=== PATIENT | female | born 1965 ===

== ENCOUNTER 2017-08-08 16:50 | Emergency (ER) | payer MEDICAID ==
[2017-08-08 16:56] VITALS: BP 130/85; PULSE 91; RESP 18; TEMP 97.4; O2SAT 100
--- NOTE | 2017-08-08 17:40 | ED PDOC ---
HPI: General Adult Time Seen by Provider: 08/08/17 17:02 Chief Complaint (Nursing): Back Pain History Per: Patient History/Exam Limitations: no limitations Onset/Duration Of Symptoms: Days (x 3 to 4) Current Symptoms Are (Timing): Still Present Additional Complaint(s): Myranda is a 52 year old female who presents to the emergency department with painful lump in right flank area. Patient states she noticed lump today. Patient reports pain is worse with movement. Denies trauma, hematuria, dysuria, incontinence, radiation of pain, discharge, fever, chest pain or shortness of breath. Patient states she has had 2 non-malignant cysts removed from her brain and breast. PMD: Bailee Dillon Past Medical History Reviewed: Historical Data, Nursing Documentation, Vital Signs Vital Signs: Last Vital Signs Temp 97.4 F L 08/08/17 16:51 Pulse 91 H 08/08/17 16:51 Resp 18 08/08/17 16:51 BP 130/85 08/08/17 16:51 Pulse Ox 100 08/08/17 17:56 - Medical History PMH: Diabetes, Gastritis, HTN, Hypercholesterolemia, Hypothyroidism, Malignancy (vaginal and uterine cancer) - Surgical History Other surgeries: Cyst removals - Family History Family History: States: Diabetes, Hypertension - Immunization History Hx Tetanus Toxoid Vaccination: No Hx Influenza Vaccination: No Hx Pneumococcal Vaccination: No - Home Medications Home Medications: Ambulatory Orders Medication Instructions Recorded Atenolol [Tenormin] 100 mg PO DAILY 02/08/15 Atorvastatin Calcium [Lipitor] 40 mg PO HS 02/08/15 amLODIPine [Norvasc] 5 mg PO DAILY 03/20/15 Acetaminophen [Tylenol Extra 1,000 mg PO Q6H PRN 07/09/16 Strength] Cephalexin [Keflex] 500 mg PO Q6 #40 capsule 07/09/16 Levothyroxine [Synthroid] 25 mcg PO DAILY 07/09/16 Lisinopril [Zestril] 40 mg PO DAILY 07/09/16 Mupirocin 2% Nasal [Bactroban 2% 1 applic ADRIAN BID #1 tub 07/09/16 Nasal] Naproxen [Naprosyn] 500 mg PO Q12 PRN #20 tablet 07/09/16 Sulfamethoxazole/Trimethoprim 1 tab PO BID 07/09/16 [Bactrim DS Tab] Cyclobenzaprine [Cyclobenzaprine 10 mg PO Q8 PRN #30 tab 08/08/17 HCl] Meloxicam [Mobic] 7.5 mg PO DAILY PRN #30 tab 08/08/17 - Allergies Allergies/Adverse Reactions: Allergies Allergy/AdvReac Type Severity Reaction Status Date / Time No Known Allergies Allergy Verified 07/09/16 17:13 Review of Systems ROS Statement: Except As Marked, All Systems Reviewed And Found Negative Constitutional: Negative for: Fever Cardiovascular: Negative for: Chest Pain Respiratory: Negative for: Shortness of Breath Genitourinary Female: Negative for: Dysuria, Incontinence, Hematuria, Vaginal Discharge Musculoskeletal: Negative for: Other (radiation of pain) Skin: Positive for: Other (painful lump in right flank area) Physical Exam - Reviewed Nursing Documentation Reviewed: Yes Vital Signs Reviewed: Yes - Physical Exam Respiratory: Positive for: Normal Breath Sounds (Lungs clear) Gastrointestinal/Abdominal: Positive for: Normal Exam, Soft. Negative for: Tenderness Back: Positive for: Other (approx baseball size non-flucantant non-tender mass noted to right flank area with defined borders with surrounding muscle spasm and mass is mobile, non-erythematous, no breaks in skin integrity). Negative for: L CVA Tenderness, R CVA Tenderness, Vertebral Tenderness - ECG O2 Sat by Pulse Oximetry: 100 (RA) Pulse Ox Interpretation: Normal Medical Decision Making Medical Decision Making: Time: 17:14 Plan: - Toradol 30 mg IM Patient is advised to follow up with general surgeon for possible excision/ biopsy of mass. Patient was informed most likely lipoma, but would need biopsy to determine definitively. Patient verbally understands importance of follow up. Upon provider evaluation patient is medically stable, and requires no further treatment in the ED at this time. Patient will be discharged with Rx for Cyclobenzaprine and Mobic. Counseling was provided and all questions were answered regarding diagnosis and need for follow up with general surgeon. There is agreement to discharge plan. Return if symptoms persist or worsen. Scribe Attestation: Documented by Scott Szymanski, acting as a scribe for OMAR Richardson Provider Scribe Attestation: All medical record entries made by the Scribe were at my direction and personally dictated by me. I have reviewed the chart and agree that the record accurately reflects my personal performance of the history, physical exam, medical decision making, and the department course for this patient. I have also personally directed, reviewed, and agree with the discharge instructions and disposition. Disposition - Clinical Impression Clinical Impression: Back pain, Mass on back - Patient ED Disposition Is Patient to be Admitted: No - Disposition Referrals: [facility] Taw[facility] Preciado [Outside] Jamarcus Conti MD [Staff Provider] - Disposition: Routine/Home Disposition Time: 17:55 Condition: STABLE Additional Instructions: Follow up with surgeon for possible excision/biopsy of mass. Prescriptions: Cyclobenzaprine [Cyclobenzaprine HCl] 10 mg PO Q8 PRN #30 tab PRN Reason: Muscle Spasm Meloxicam [Mobic] 7.5 mg PO DAILY PRN #30 tab PRN Reason: Pain, Mild (1-3) Instructions: Lipoma (ED), Back Pain (ED) Forms: [employer] (Kiswahili) Print Language: HEBREW
== END 2017-08-08 17:59 | disposition home or self-care (01) ==
LOC: H.ER 16:50
DX: M54.9 Dorsalgia, unspecified (principal); D17.1 Benign lipomatous neoplasm of skin and subcutaneous tissue of trunk; Z85.42 Personal history of malignant neoplasm of other parts of uterus; E03.9 Hypothyroidism, unspecified; E11.9 Type 2 diabetes mellitus without complications; E78.00 Pure hypercholesterolemia, unspecified; I10 Essential (primary) hypertension
CPT/HCPCS: 96372; 99282; J1885

== ENCOUNTER 2017-08-28 12:43 | Emergency (ER) | payer MEDICAID ==
[2017-08-28 12:49] VITALS: TEMP 97.6
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
[2017-08-28 15:32] VITALS: BP 145/85; PULSE 75; RESP 16; O2SAT 99
== END 2017-08-28 15:32 | disposition home or self-care (01) ==
LOC: H.ER 12:43
DX: F41.9 Anxiety disorder, unspecified (principal); I10 Essential (primary) hypertension; E03.9 Hypothyroidism, unspecified; E11.9 Type 2 diabetes mellitus without complications; E78.00 Pure hypercholesterolemia, unspecified; Z85.42 Personal history of malignant neoplasm of other parts of uterus

== ENCOUNTER 2018-01-11 17:29 | Emergency (ER) | payer MEDICAID ==
[2018-01-11 17:48] VITALS: BP 126/78; PULSE 89; TEMP 98.4; O2SAT 100
[2018-01-11] MEDS ORDERED: PROPARACAINE/FLUORESCEIN SOD 100 DROP/5 ML BOTTLE ONE (18:21)
[2018-01-11] MEDS ORDERED: PROPARACAINE/FLUORESCEIN SOD 100 DROP/5 ML BOTTLE OS STA (18:22)
[2018-01-11] MEDS ORDERED: Tobramycin 0.3% OPH OINT OS STA (18:33)
--- NOTE | 2018-01-11 18:36 | ED PDOC ---
HPI: Eye Injury/Pain Time Seen by Provider: 01/11/18 18:22 Chief Complaint (Nursing): Eye Problem Chief Complaint (Provider): Left Eye Injury History Per: Patient History/Exam Limitations: no limitations Onset/Duration Of Symptoms: Days Current Symptoms Are (Timing): Still Present Injury To Eye?: Yes Severity: None Quality: "Pain" Wears Contact Lens?: No Associated Symptoms: denies: Decreased Vision, Swelling, FB Sensation Additional Complaint(s): 52 year old female presents to the emergency department with an injury to her left eye. Patient reports that yesterday when she woke up she attempted to get out of bed and tripped on a shoe causing her to fall hitting her eye against the edge of a table. Denies vision changes. PMD: Bailee Machado Past Medical History Reviewed: Historical Data, Nursing Documentation, Vital Signs Vital Signs: Last Vital Signs Temp 98.4 F 01/11/18 17:47 Pulse 89 01/11/18 17:47 Resp BP 126/78 01/11/18 17:47 Pulse Ox 100 01/11/18 17:47 - Medical History PMH: Diabetes, Gastritis, HTN, Hypercholesterolemia, Hypothyroidism, Malignancy (vaginal and uterine cancer) - Surgical History Surgical History: No Surg Hx - Family History Family History: States: Diabetes, Hypertension - Living Arrangements Living Arrangements: With Family - Social History Current smoker - smoking cessation education provided: No Ex-Smoker (has not smoked in the last 12 months): No Alcohol: None Drugs: Denies - Immunization History Hx Tetanus Toxoid Vaccination: No Hx Influenza Vaccination: No Hx Pneumococcal Vaccination: No - Home Medications Home Medications: Ambulatory Orders Medication Instructions Recorded Atenolol [Tenormin] 100 mg PO DAILY 02/08/15 Atorvastatin Calcium [Lipitor] 40 mg PO HS 02/08/15 amLODIPine [Norvasc] 5 mg PO DAILY 03/20/15 Acetaminophen [Tylenol Extra 1,000 mg PO Q6H PRN 07/09/16 Strength] Cephalexin [Keflex] 500 mg PO Q6 #40 capsule 07/09/16 Levothyroxine [Synthroid] 25 mcg PO DAILY 07/09/16 Lisinopril [Zestril] 40 mg PO DAILY 07/09/16 Mupirocin 2% Nasal [Bactroban 2% 1 applic ADRIAN BID #1 tub 07/09/16 Nasal] Naproxen [Naprosyn] 500 mg PO Q12 PRN #20 tablet 07/09/16 Sulfamethoxazole/Trimethoprim 1 tab PO BID 07/09/16 [Bactrim DS Tab] Cyclobenzaprine [Cyclobenzaprine 10 mg PO Q8 PRN #30 tab 08/08/17 HCl] Meloxicam [Mobic] 7.5 mg PO DAILY PRN #30 tab 08/08/17 Ibuprofen [Motrin] 600 mg PO Q8 PRN #21 tab 01/11/18 Tobramycin 0.3% [Tobrex] 0.5 in OS BID #1 tube 01/11/18 - Allergies Allergies/Adverse Reactions: Allergies Allergy/AdvReac Type Severity Reaction Status Date / Time No Known Allergies Allergy Verified 07/09/16 17:13 Review of Systems ROS Statement: Except As Marked, All Systems Reviewed And Found Negative Eyes: Positive for: Pain (left), Other (left eye injury). Negative for: Vision Change Physical Exam - Reviewed Nursing Documentation Reviewed: Yes Vital Signs Reviewed: Yes - Physical Exam Appears: Positive for: Non-toxic, No Acute Distress Head Exam: Positive for: NORMAL INSPECTION Skin: Positive for: Normal Color, Warm, Dry. Negative for: Rash Eye Exam: Positive for: EOMI, PERRL, Conjunctival injection (mild conjunctival injection noted to left lateral eye), Other (1cm fluorescein uptake noted lateral of left eye ; Visual Acuity: 20/70 bilaterally). Negative for: Periorbital swelling, Periorbital tenderness Neurologic/Psych: Positive for: Alert, Oriented, Gait. Negative for: Motor/ Sensory Deficits - ECG O2 Sat by Pulse Oximetry: 100 (RA) Pulse Ox Interpretation: Normal Medical Decision Making Medical Decision Makin Initial impression 52 year old female presenting with injury to left eye Initial plan: * Fluorescein 1 drop OS * Tobramycin 0.3 % 1 ppl OS * Reevaluation Documented by Rachel Villarreal acting as a scribe for Setu Rice, PA-C. All medical record entries made by the Scribe were at my direction and personally dictated by me. I have reviewed the chart and agree that the record accurately reflects my personal performance of the history, physical exam, medical decision making, and the department course for this patient. I have also personally directed, reviewed, and agree with the discharge instructions and disposition. Disposition - Clinical Impression Clinical Impression: Corneal abrasion - Patient ED Disposition Is Patient to be Admitted: No Counseled Patient/Family Regarding: Studies Performed, Diagnosis, Need For Followup - Disposition Referrals: Hugo Carroll MD [Staff Provider] - Disposition: Routine/Home Disposition Time: 18:35 Condition: STABLE Prescriptions: Ibuprofen [Motrin] 600 mg PO Q8 PRN #21 tab PRN Reason: Pain, Moderate (4-7) Tobramycin 0.3% [Tobrex] 0.5 in OS BID #1 tube Instructions: Corneal Abrasion (DC) - POA Present On Arrival: None
[2018-01-11] MEDS ORDERED: Tdap Vaccine 0.5 ml Vial (10-64 yrs) IM ONE (18:41)
== END 2018-01-11 19:06 | disposition home or self-care (01) ==
LOC: H.ER 17:29
DX: S05.02XA Injury of conjunctiva and corneal abrasion without foreign body, left eye, initial encounter (principal); W01.190A Fall on same level from slipping, tripping and stumbling with subsequent striking against furniture, initial encounter; E11.9 Type 2 diabetes mellitus without complications; I10 Essential (primary) hypertension; Z87.891 Personal history of nicotine dependence; Z85.42 Personal history of malignant neoplasm of other parts of uterus; E78.00 Pure hypercholesterolemia, unspecified; E03.9 Hypothyroidism, unspecified

== ENCOUNTER 2018-01-30 06:00 | Day surgery (SDC) | payer MEDICAID ==
[2018-01-29 09:47] VITALS: BMI 30.6
[2018-01-30] MEDS ORDERED: Lactated Ringer's 1,000 ML IV ONE (06:43)
[2018-01-30] MEDS ORDERED: ceFAZolin IV 2 gm in Dextrose 2 GM/50 ML BAG IVPB ONE (07:38)
[2018-01-30] MEDS ORDERED: Midazolam 2 MG/2 ML VIAL ONE (08:20)
[2018-01-30] MEDS ORDERED: Propofol 10 mg/ml Inj (20 ML) ONE (08:20)
[2018-01-30] MEDS ORDERED: Phenylephrine 10 mg/ml Inj ONE (08:36)
[2018-01-30] MEDS ORDERED: ePHEDrine 50 mg/ml Inj ONE (08:46)
[2018-01-30] MEDS ORDERED: Lidocaine 1% Inj (20ml) IJ ONE ×3 (09:11→09:16)
--- NOTE | 2018-01-30 09:12 | RAD ---
HISTORY: preop COMPARISON: Chest radiographs 09/07/2013. TECHNIQUE: Chest PA and lateral FINDINGS: LUNGS: No active pulmonary disease. PLEURA: No significant pleural effusion identified. No pneumothorax apparent. CARDIOVASCULAR: Normal. OSSEOUS STRUCTURES: Incidental note is made of anterior cervical spinal fusion hardware at C6 and C7 vertebral bodies, once again. VISUALIZED UPPER ABDOMEN: Normal. OTHER FINDINGS: None. IMPRESSION: No interval acute cardiopulmonary disease appreciated.
[2018-01-30] MEDS ORDERED: Lactated Ringer's 500 ML IV ONE (09:26)
--- NOTE | 2018-01-30 09:36 | CP.SDSHP ---
Same Day Surgery H & P - History Proposed Procedure: Excision of left back mass Pre-Op Diagnosis: left back mass - Allergies Allergies: Allergies No Known Allergies Allergy (Verified 07/09/16 17:13) - Physical Exam Vital Signs: Vital Signs 01/30/18 01/30/18 06:24 06:27 Temperature 98.2 F Pulse Rate 80 80 Respiratory 20 Rate Blood Pressure 112/74 O2 Sat by Pulse 98 Oximetry Short Stay Discharge - Short Stay Discharge Admitting Diagnosis/Reason for Visit: D17.1 Disposition: HOME/ ROUTINE Referrals: Bailee Cohen APN [Primary Care Provider] - Jamarcus Conti MD [Staff Provider] - Follow-up: in 7-10 days Instructions: How to Prevent Surgical Site Infections, Surgical Wound (DC) Additional Instructions (Diet, Activity): You may shower, gently washing area with soap and water. Do not sit in a hot tub or go swimming until cleared by Dr. Conti Please follow up with Dr. Conti in the office in 7-10 days for evaluation post operatively Ok to resume normal diet If you take the pain medications, do not drive or operative heavy machinery. Be careful, as pain medications can cause constipation. If you get constipation , ok to use over the counter stool softener. Progress Note/Discharge Note with Instructions: Ok to d/c home when meets criteria
[2018-01-30] MEDS ORDERED: Oxycodone/Acetaminophen 5/325 mg Tab PO PRN (09:41)
[2018-01-30 09:44] VITALS: RESP 18
--- NOTE | 2018-01-30 09:46 | PCM.SURG1 ---
Surgeon's Initial Post Op Note - Surgeon's Notes Surgeon: Dr. Jamarcus Conti Body Worker: Azul Montenegro, PGY-2 Type of Anesthesia: General LMA Anesthesia Administered By: Dr. Dai Pre-Operative Diagnosis: Left back mass Operative Findings: See op report Post-Operative Diagnosis: Left back mass Operation Performed: Excision of left back mass Specimen/Specimens Removed: back mass Estimated Blood Loss: EBL {In ML}: 5 Blood Products Given: N/A Drains Used: No Drains Post-Op Condition: Good Date of Surgery/Procedure: 01/30/18 Time of Surgery/Procedure: 09:30
[2018-01-30 12:07] VITALS: BP 100/58; PULSE 61; TEMP 97.3; O2SAT 99
--- NOTE | 2018-02-02 11:09 | OP ---
PROCEDURE DATE: 01/30/18 PREOPERATIVE DIAGNOSIS: Back mass. POSTOPERATIVE DIAGNOSIS: Back mass. PROCEDURE: Excision of the back mass. SURGEON: Jamarcus Conti MD. CHEMICAL RESEARCH ENGINEER: Moni. ANESTHESIOLOGIST: ANESTHESIA: General with LMA intubation. IV FLUIDS: Crystalloids. ESTIMATED BLOOD LOSS: 5 mL. INTRAOPERATIVE FINDINGS: Fatty appearing mass of the back. SPECIMEN: Back mass. BRIEF HISTORY: Ms. Kolb is a very pleasant 52-year-old female who came to my office complaining of the back mass that she noticed about seven months ago; however, lately it has been giving her more pains and discomforts and she wished for the mass to be excised surgically. All the risks and benefits of the procedure were explained to the patient and with the patient having a full understanding of all the risks and benefits involved, informed consent was obtained and the patient was taken to the operating room for above-stated procedure. DESCRIPTION OF PROCEDURE: The patient was brought into the operating room and placed supine on operating table. Bilateral Flowtron boots were applied to the patient's lower extremities. After successful induction of anesthesia and successful LMA intubation by the anesthesia team, the patient was placed in the left lateral decubitus position and subsequent to that, the patient's back was prepped with ChloraPrep stick and draped in a standard surgical fashion. Prior to the beginning of the procedure, the patient received prophylactic Ancef antibiotic. A time-out was called in the room and everyone in the room were in agreement. Using a #15-blade scalpel knife, approximately 3 cm incision was made in a transverse fashion right on top of the palpable mass of the back, and subsequent to that, dissection was carried down with electrical cautery. The mass was excised with blunt dissection with the finger as well as with electrical cautery, and once it was completely freed up, it was passed [facility] to the [facility] as a specimen. At this point in time, the wound was irrigated and dried. Hemostasis was confirmed, and three interrupted 3-0 Vicryl sutures were placed in the deep dermal layer. Subsequent to that, the wound was injected with 1% lidocaine anesthetic, and subsequent to that, skin was closed with 4-0 Monocryl suture in a running subcuticular fashion. At the end of the procedure, the patient's back was washed and dried and a Dermabond was applied to the site of incision. The patient was successfully turned back to the supine position, was successfully extubated by the anesthesia team, and transferred to the stretcher, and taken to the recovery room in a stable condition. At the end of the procedure, all the instrument counts, needles, and sponges were correct. Jamarcus Conti MD
--- NOTE | 2018-02-02 11:23 | CARD ---
APPROVED REPORT EKG Measurement Heart [id number] <Conclusion> Normal sinus rhythm Normal ECG
== END 2018-01-30 12:05 | disposition home or self-care (01) ==
LOC: H.OPSURG 06:00
PROVIDERS: ATTEND Surgery
DX: D17.1 Benign lipomatous neoplasm of skin and subcutaneous tissue of trunk (principal); E11.9 Type 2 diabetes mellitus without complications; I10 Essential (primary) hypertension; E03.9 Hypothyroidism, unspecified; Z87.891 Personal history of nicotine dependence
CPT/HCPCS: 11400; 71046; 82948; 88307; 93005; J0690; J2250; J2370; J2704; J2765; J3010; J7120

== ENCOUNTER 2018-02-15 12:20 | Emergency (ER) | payer MEDICAID ==
[2018-02-15 12:20] VITALS: BMI 30.6
[2018-02-15 12:25] VITALS: BP 128/83; PULSE 76; RESP 16; TEMP 98.9; O2SAT 99
--- NOTE | 2018-02-15 13:15 | ED PDOC ---
HPI: Back Time Seen by Provider: 02/15/18 12:26 Chief Complaint (Nursing): Back Pain Chief Complaint (Provider): Back Pain History Per: Patient History/Exam Limitations: no limitations Onset/Duration Of Symptoms: Days (x1) Current Symptoms Are (Timing): Still Present Additional Complaint(s): 52 y/o female with a PMHx of HTN, hypercholesterolemia, hypothyroidism, vaginal and uterine CA, diabetes, and gastritis, presenting for evaluation of right sided lower back pain x1 day. Patient states earlier today she was relaxing at home sitting down and when she attempted to get up from a seated position, she immediately felt pain in her lower back. Patient states she is concerned as she had a cyst removed on 01/30/[address] Conti. She reports pain is exacerbated by movement. She denies any pain around the incision site, discharge, fever, numbness, tingling, incontinence, dysuria, or hematuria. PMD: Dr. Cohen Past Medical History Reviewed: Historical Data, Nursing Documentation, Vital Signs Vital Signs: Last Vital Signs Temp 98.9 F 02/15/18 12:21 Pulse 76 02/15/18 12:21 Resp 16 02/15/18 12:21 BP 128/83 02/15/18 12:21 Pulse Ox 99 02/15/18 12:21 - Medical History PMH: Diabetes, Gastritis, HTN, Hypercholesterolemia, Hypothyroidism, Malignancy (vaginal and uterine cancer) Denies: Chronic Kidney Disease - Surgical History Other surgeries: Cyst removal - Family History Family History: States: Diabetes, Hypertension - Immunization History Hx Tetanus Toxoid Vaccination: No Hx Influenza Vaccination: No Hx Pneumococcal Vaccination: No - Home Medications Home Medications: Ambulatory Orders Medication Instructions Recorded Atenolol [Tenormin] 100 mg PO DAILY 02/08/15 Atorvastatin Calcium [Lipitor] 40 mg PO HS 02/08/15 amLODIPine [Norvasc] 5 mg PO DAILY 03/20/15 Acetaminophen [Tylenol Extra 1,000 mg PO Q6H PRN 07/09/16 Strength] Levothyroxine [Synthroid] 25 mcg PO DAILY 07/09/16 Lisinopril [Zestril] 40 mg PO DAILY 07/09/16 Mupirocin 2% Nasal [Bactroban 2% 1 applic ADRIAN BID #1 tub 07/09/16 Nasal] Naproxen [Naprosyn] 500 mg PO Q12 PRN #20 tablet 07/09/16 Sulfamethoxazole/Trimethoprim 1 tab PO BID 07/09/16 [Bactrim DS Tab] Cyclobenzaprine [Flexeril] 10 mg PO Q8 PRN #30 tab 08/08/17 Meloxicam [Mobic] 7.5 mg PO DAILY PRN #30 tab 08/08/17 Ibuprofen [Motrin Tab] 600 mg PO Q8 PRN #21 tab 01/11/18 Tobramycin 0.3% [Tobrex 0.3% Ophth 0.5 in OS BID #1 tube 01/11/18 Oint] oxyCODONE/Acetaminophen [Percocet 1 tab PO Q4 PRN #30 tab 01/30/18 5/325 mg Tab] Cyclobenzaprine [Cyclobenzaprine 10 mg PO Q8 PRN #10 tab 02/15/18 HCl] Naproxen [Naprosyn] 500 mg PO BID PRN #10 tab 02/15/18 Nitrofurantoin Macrocrystals 100 mg PO BID #14 cap 02/15/18 [Macrobid] - Allergies Allergies/Adverse Reactions: Allergies Allergy/AdvReac Type Severity Reaction Status Date / Time No Known Allergies Allergy Verified 07/09/16 17:13 Review of Systems ROS Statement: Except As Marked, All Systems Reviewed And Found Negative Constitutional: Negative for: Fever Genitourinary Female: Negative for: Dysuria, Incontinence, Hematuria Musculoskeletal: Positive for: Back Pain Neurological: Negative for: Numbness Physical Exam - Reviewed Nursing Documentation Reviewed: Yes - Physical Exam Appears: Positive for: Uncomfortable, In Acute Distress (mild painful distress) Skin: Positive for: Normal Color, Warm. Negative for: Rash Cardiovascular/Chest: Positive for: Regular Rate, Rhythm. Negative for: Murmur Respiratory: Positive for: Normal Breath Sounds. Negative for: Respiratory Distress Gastrointestinal/Abdominal: Positive for: Normal Exam, Soft. Negative for: Tenderness Back: Positive for: Muscle Spasm, Other (tenderness to right paralumbar area medial to wound). Negative for: Normal Inspection (healing sutured wound to right lower back, no ecchymosis, no erythema, no discharge, no swelling, no dehiscence, no tenderness to incision site), L CVA Tenderness, R CVA Tenderness , Vertebral Tenderness Neurologic/Psych: Positive for: Alert, Oriented (x3) - ECG O2 Sat by Pulse Oximetry: 99 (RA) Pulse Ox Interpretation: Normal - Radiology X-Ray: Interpreted by Me (LS spine x-ray) X-Ray Interpretation: No Acute Disease - Progress Re-evaluation Time: 14:15 (Informed of results and advised to f/u with Dr. Conti on Friday as previously scheduled without fail but is to return to ED if pain worsens or fever develops. Gait steady, unassisted) Condition: Re-examined, Improving,but remains with symptoms Medical Decision Making Medical Decision Makin:37 Plan: -Flexeril 10mg PO -Toradol 30mg IM -IV insertion -X-ray lumbar spine -Urinalysis Case discussed with Dr. Conti who knows patient and agrees pain is most likely muscular and does not require any further testing in regards to incision site. He states patient can follow up in his office on Friday. Scribe Attestation: Documented by Kevin Haji, acting as a scribe for Wilfredo Tim PA-C. Provider Scribe Attestation: All medical record entries made by the scribe were at my direction and personally dictated by me. I have reviewed the chart and agree that the record accurately reflects my personal performance of the history, physical exam, medical decision making, and the department course for this patient. I have also personally directed, reviewed, and agree with the discharge instructions and disposition. Disposition - Clinical Impression Clinical Impression: UTI (urinary tract infection), Low back pain, Visit for wound check - Patient ED Disposition Is Patient to be Admitted: No - Disposition Referrals: Jamarcus Conti MD [Staff Provider] - [facility] [Outside] Disposition: Routine/Home Disposition Time: 14:15 Condition: IMPROVED Additional Instructions: WU TRAMMELL, thank you for letting us take care of you today. Your provider was Chapo Potts MD and you were treated for BACK PAIN. The emergency medical care you received today was directed at your acute symptoms. If you were prescribed any medication, please fill it and take as directed. It may take several days for your symptoms to resolve. Return to the Emergency Department if your symptoms worsen, do not improve, or if you have any other problems. Please contact your doctor or call one of the physicians/clinics you have been referred to that are listed on the Patient Visit Information form that is included in your discharge packet. Bring any paperwork you were given at discharge with you along with any medications you are taking to your follow up visit. Our treatment cannot replace ongoing medical care by a primary care provider outside of the emergency department. Thank you for allowing the [facility] team to be part of your care today. If you had an X-Ray or CT scan: A Radiologist will review the ED reading if any change in treatment is needed we will contact you. If you had a blood, urine, or wound culture: It will take several days for the results, if any change in treatment is needed we will contact you. If you had an STI test: It will take 48 hours for the results. Please call after 1 week if you have not heard back. Prescriptions: Cyclobenzaprine [Cyclobenzaprine HCl] 10 mg PO Q8 PRN #10 tab PRN Reason: Muscle Spasm Naproxen [Naprosyn] 500 mg PO BID PRN #10 tab PRN Reason: Pain Nitrofurantoin Macrocrystals [Macrobid] 100 mg PO BID #14 cap Instructions: Low Back Pain (DC), Urinary Tract Infection, Adult (DC) Forms: [employer] (Japanese) Print Language: HONDURAN
[2018-02-15 13:38] LABS: SQUAMOUS EPITHIAL 2 /hpf (0-5); URINE BACTERIA FEW (<OCC); URINE BILIRUBIN NEGATIVE (NEGATIVE); URINE BLOOD SMALL (NEGATIVE); URINE CLARITY CLEAR (Clear); URINE COLOR STRAW (YELLOW); URINE GLUCOSE (UA) NEG (Normal); URINE LEUKOCYTE ESTERASE LARGE Leu/uL (Negative); URINE PROTEIN NEGATIVE (NEGATIVE); URINE UROBILINOGEN 0.2-1.0 mg/dL (0.2-1.0)
--- NOTE | 2018-02-15 14:43 | RAD ---
Date of service: 02/15/2018 PROCEDURE: Radiographs of the Lumbar Spine. HISTORY: pain COMPARISON: No prior. FINDINGS: BONES: Normal alignment. No listhesis. No fracture. DISC SPACES: Unremarkable. OTHER FINDINGS: None. IMPRESSION: Unremarkable radiographs of the lumbar spine.
== END 2018-02-15 14:35 | disposition home or self-care (01) ==
LOC: H.ER 12:20
DX: N39.0 Urinary tract infection, site not specified (principal); M54.5 Low back pain; E03.9 Hypothyroidism, unspecified; E11.9 Type 2 diabetes mellitus without complications; E78.00 Pure hypercholesterolemia, unspecified; I10 Essential (primary) hypertension; Z85.42 Personal history of malignant neoplasm of other parts of uterus
CPT/HCPCS: 72100; 81003; 81025; 87086; 96372; 99283; J1885

== ENCOUNTER 2018-03-13 01:17 | Emergency (ER) | payer MEDICAID ==
[2018-03-13 01:17] VITALS: BMI 30.6
[2018-03-13 01:49] VITALS: O2SAT 95
[2018-03-13] MEDS ORDERED: Bacitracin 500 Units/gm Oint Foilpak UD TOP STA (03:09)
--- NOTE | 2018-03-13 03:53 | ED PDOC ---
HPI: Wound Care - HPI Time Seen by Provider: 03/13/18 02:14 Chief Complaint (Nursing): Wound Check Chief Complaint (Provider): Wound Check History Per: Patient Exam Limitations: no limitations Additional Complaint(s): Patient is a 52 y/o female with history of diabetes, hypertension, and hypothyroid, who presents to the ED for wound evaluation. Patient states that on 03/02/18 she had a fatty cyst removed by Dr. Conti and the incision was glued shut with adhesive; there were no complications at that time. On 03/09/18 patient noted drainage and saw surgeon on 03/11/18 and was told everything was fine at that time. Tonight while patient was lying in bed she noticed a large amount of clear/yellow drainage prompting ED evaluation. She notes she has an upcoming PMD appointment tomorrow. She denies fever, chills, increasing pain. PMD: Bailee Cohen Past Medical History Reviewed: Historical Data, Nursing Documentation, Vital Signs Vital Signs: Last Vital Signs Temp 99.3 F 03/13/18 01:47 Pulse 86 03/13/18 01:47 Resp 16 03/13/18 01:47 BP 133/89 03/13/18 01:47 Pulse Ox 95 03/13/18 01:47 - Medical History PMH: Diabetes, Gastritis, HTN, Hypercholesterolemia, Hypothyroidism, Malignancy (vaginal and uterine cancer) - Surgical History Other surgeries: Cyst removals - Family History Family History: States: Diabetes, Hypertension - Social History Current smoker - smoking cessation education provided: Yes (0.5 packs per day) Alcohol: None Drugs: Denies - Home Medications Home Medications: Ambulatory Orders Medication Instructions Recorded Atenolol [Tenormin] 100 mg PO DAILY 02/08/15 Atorvastatin Calcium [Lipitor] 40 mg PO HS 02/08/15 amLODIPine [Norvasc] 5 mg PO DAILY 03/20/15 Acetaminophen [Tylenol Extra 1,000 mg PO Q6H PRN 07/09/16 Strength] Levothyroxine [Synthroid] 25 mcg PO DAILY 07/09/16 Lisinopril [Zestril] 40 mg PO DAILY 07/09/16 Mupirocin 2% Nasal [Bactroban 2% 1 applic ADRIAN BID #1 tub 07/09/16 Nasal] Naproxen [Naprosyn] 500 mg PO Q12 PRN #20 tablet 07/09/16 Sulfamethoxazole/Trimethoprim 1 tab PO BID 07/09/16 [Bactrim DS Tab] Cyclobenzaprine [Flexeril] 10 mg PO Q8 PRN #30 tab 08/08/17 Meloxicam [Mobic] 7.5 mg PO DAILY PRN #30 tab 08/08/17 Ibuprofen [Motrin Tab] 600 mg PO Q8 PRN #21 tab 01/11/18 Tobramycin 0.3% [Tobrex 0.3% Ophth 0.5 in OS BID #1 tube 01/11/18 Oint] oxyCODONE/Acetaminophen [Percocet 1 tab PO Q4 PRN #30 tab 01/30/18 5/325 mg Tab] Cyclobenzaprine [Cyclobenzaprine 10 mg PO Q8 PRN #10 tab 02/15/18 HCl] Naproxen [Naprosyn] 500 mg PO BID PRN #10 tab 02/15/18 Nitrofurantoin Macrocrystals 100 mg PO BID #14 cap 02/15/18 [Macrobid] Penicillin VK [Penicillin VK Tab] 500 mg PO Q6 #40 tab 02/19/18 Bacitracin Ointment [Bacitracin] 1 applic TOP BID #1 tube 03/13/18 - Allergies Allergies/Adverse Reactions: Allergies Allergy/AdvReac Type Severity Reaction Status Date / Time No Known Allergies Allergy Verified 07/09/16 17:13 Review of Systems ROS Statement: Except As Marked, All Systems Reviewed And Found Negative Constitutional: Negative for: Fever, Chills Skin: Positive for: Other (drainage from surgical incision) Physical Exam - Reviewed Nursing Documentation Reviewed: Yes Vital Signs Reviewed: Yes - Physical Exam Comments: GENERAL APPEARANCE: Patient is awake, alert, oriented x3; resting comfortably, in no acute distress. SKIN: Warm, dry; (-) cyanosis, (-) rash. ENMT: Airway patent: (-) stridor. Mucus membranes moist. NECK: Supple, FROM ABDOMEN AND GI: Soft; (-) tenderness, (-) guarding (-) distention BACK: (+)3.5cm healing horizontal surgical incision to the right lower parathoracic area; medial aspect of incision has small 2-3mm opening with clear yellow tinged fluid draining (-)erythema (-) pain at surgical site (-) warmth (- ) evidence of surrounding cellulitis or infection EXTREMITIES: (-) deformity NEURO AND PSYCH: Mental status as above; (-) focal findings (-) facial asymmetry. Speech clear, gait steady. - ECG O2 Sat by Pulse Oximetry: 95 (RA) Pulse Ox Interpretation: Normal Medical Decision Making Medical Decision Making: Time: 03:05 Impression: Seroma, wound check Initial Plan: --Bacitracin dressing --Wound culture 0345 On re-evaluation, patient offers no additional complaints. On exam, patient remains AAOx3, in no acute distress. Lungs clear to auscultation, cardiac RRR, abdomen soft, non-tender, repeat neuro exam shows no focal findings. VSS, stable for discharge. Educated on wound care. Lab/Diagnostic results d/w the patient in great detail. Diagnosis of seroma of surgical wound, post-operative wound check d/w the patient. Based on history, exam and diagnostic results, plan will be for outpatient follow up with PMD/Dr Conti. Patient instructed to follow-up with pmd / referral provided / the clinic in 1- 2 days without fail. Advised to take medication as prescribed. Return to the emergency room at any time for any new or worsening symptoms. Patient states she fully agrees with and understands discharge instructions. States that she agrees with the plan and disposition. Verbalized and repeated discharge instructions and plan. I have given the patient opportunity to ask any additional questions. Scribe Attestation: Documented by Arun Lorenzo, acting as a scribe for Marcie Jaramillo PA-C. Provider Scribe Attestation: All medical record entries made by the Scribe were at my direction and personally dictated by me. I have reviewed the chart and agree that the record accurately reflects my personal performance of the history, physical exam, medical decision making, and the department course for this patient. I have also personally directed, reviewed, and agree with the discharge Disposition - Clinical Impression Clinical Impression: Seroma after procedure, Encounter for postoperative wound check - Patient ED Disposition Is Patient to be Admitted: No Counseled Patient/Family Regarding: Studies Performed, Diagnosis, Need For Followup, Rx Given - Disposition Referrals: Bailee Cohen APN [Primary Care Provider] - Jamarcus Conti MD [Staff Provider] - Disposition: Routine/Home Disposition Time: 03:50 Condition: STABLE Additional Instructions: The emergency medical care you received today was directed towards the acute presenting symptoms. If you were prescribed any medication, please fill it and give as directed. It may take several days for your symptoms to resolve. Return to the Emergency Department at any time if symptoms worsen, do not improve, or if any other problems arise. Please contact your doctor in 2 days for re-evaluation and follow up / or call one of the physicians/clinics you have been referred to that are listed on the Patient Visit Information form that is included in your discharge packet. Bring any paperwork you were given at discharge with you along with any medications to your follow up visit. Our treatment cannot replace ongoing medical care by a primary care provider (PCP) outside of the emergency department. Prescriptions: Bacitracin Ointment [Bacitracin] 1 applic TOP BID #1 tube Instructions: Surgical Wound (DC), Wound Care Forms: [employer] (Yakut) Print Language: MALDIVIAN - POA Present On Arrival: None
[2018-03-13 04:46] VITALS: BP 102/62; PULSE 57; RESP 18; TEMP 98.1
== END 2018-03-13 04:10 | disposition home or self-care (01) ==
LOC: H.ER 01:17
DX: Z48.00 Encounter for change or removal of nonsurgical wound dressing (principal); E11.9 Type 2 diabetes mellitus without complications

== ENCOUNTER 2018-03-26 19:48 | Emergency (ER) | payer MEDICAID ==
[2018-03-26 19:48] VITALS: BMI 30.6
[2018-03-26] MEDS ORDERED: Oxycodone/Acetaminophen 5/325 mg Tab PO STA (21:11)
--- NOTE | 2018-03-26 21:16 | ED PDOC ---
HPI: General Adult Time Seen by Provider: 03/26/18 20:32 Chief Complaint (Nursing): Wound Check Chief Complaint (Provider): Wound Check History Per: Patient History/Exam Limitations: no limitations Onset/Duration Of Symptoms: Days Current Symptoms Are (Timing): Still Present Additional Complaint(s): 52 year old female with PMHx of HTN, diabetes and thyroid disease presents to the ED for an evaluation of surgical scar. Patient states she had a cyst removed on March 02. It was drained twice. She currently has pain upon movement and when coughing. Also reports of fever and chills. PMD: Bailee Cohen Past Medical History Reviewed: Historical Data, Nursing Documentation, Vital Signs Vital Signs: Last Vital Signs Temp 98.7 F 03/26/18 20:29 Pulse 91 H 03/26/18 20:29 Resp 16 03/26/18 20:29 BP 143/82 03/26/18 20:29 Pulse Ox 98 03/26/18 21:28 - Medical History PMH: Diabetes, Gastritis, HTN, Hypercholesterolemia, Hypothyroidism, Malignancy (vaginal and uterine cancer) Denies: Chronic Kidney Disease - Family History Family History: States: Diabetes, Hypertension - Immunization History Hx Tetanus Toxoid Vaccination: No Hx Influenza Vaccination: No Hx Pneumococcal Vaccination: No - Home Medications Home Medications: Ambulatory Orders Medication Instructions Recorded Atenolol [Tenormin] 100 mg PO DAILY 02/08/15 Atorvastatin Calcium [Lipitor] 40 mg PO HS 02/08/15 amLODIPine [Norvasc] 5 mg PO DAILY 03/20/15 Acetaminophen [Tylenol Extra 1,000 mg PO Q6H PRN 07/09/16 Strength] Levothyroxine [Synthroid] 25 mcg PO DAILY 07/09/16 Lisinopril [Zestril] 40 mg PO DAILY 07/09/16 Mupirocin 2% Nasal [Bactroban 2% 1 applic ADRIAN BID #1 tub 07/09/16 Nasal] Naproxen [Naprosyn] 500 mg PO Q12 PRN #20 tablet 07/09/16 Sulfamethoxazole/Trimethoprim 1 tab PO BID 07/09/16 [Bactrim DS Tab] Cyclobenzaprine [Flexeril] 10 mg PO Q8 PRN #30 tab 08/08/17 Meloxicam [Mobic] 7.5 mg PO DAILY PRN #30 tab 08/08/17 Ibuprofen [Motrin Tab] 600 mg PO Q8 PRN #21 tab 01/11/18 Tobramycin 0.3% [Tobrex 0.3% Ophth 0.5 in OS BID #1 tube 01/11/18 Oint] oxyCODONE/Acetaminophen [Percocet 1 tab PO Q4 PRN #30 tab 01/30/18 5/325 mg Tab] Cyclobenzaprine [Cyclobenzaprine 10 mg PO Q8 PRN #10 tab 02/15/18 HCl] Naproxen [Naprosyn] 500 mg PO BID PRN #10 tab 02/15/18 Nitrofurantoin Macrocrystals 100 mg PO BID #14 cap 02/15/18 [Macrobid] Penicillin VK [Penicillin VK Tab] 500 mg PO Q6 #40 tab 02/19/18 Bacitracin Ointment [Bacitracin] 1 applic TOP BID #1 tube 03/13/18 Ibuprofen [Motrin] 600 mg PO Q6 #20 tab 03/26/18 oxyCODONE/Acetaminophen [Percocet 1 ea PO Q6 PRN #10 tab 03/26/18 5/325 mg Tab] - Allergies Allergies/Adverse Reactions: Allergies Allergy/AdvReac Type Severity Reaction Status Date / Time No Known Allergies Allergy Verified 03/26/18 20:29 Review of Systems ROS Statement: Except As Marked, All Systems Reviewed And Found Negative Constitutional: Positive for: Fever, Chills Physical Exam - Reviewed Nursing Documentation Reviewed: Yes Vital Signs Reviewed: Yes - Physical Exam Appears: Positive for: Well, Non-toxic, No Acute Distress Head Exam: Positive for: ATRAUMATIC, NORMAL INSPECTION, NORMOCEPHALIC Skin: Positive for: Normal Color, Warm, Dry Eye Exam: Positive for: Normal appearance Back: Positive for: Normal Inspection (No drainage or induration ), Other ( Incision site well healed, mild erythema on left flank) Neurologic/Psych: Positive for: Alert, Oriented (x3) - Laboratory Results Result Diagrams: 03/26/18 22:36 - ECG O2 Sat by Pulse Oximetry: 98 (RA) Pulse Ox Interpretation: Normal Medical Decision Making Medical Decision Making: Time: 2108 Initial Plan: --Percocet 5/325 mg --Soft Tissue Limited [US] --Reevaluation US resulted with ~ 7 cm area of fluid collection. Hematoma vs abscess. CBC resulted WBC WNL Needle aspiration revealed serous fluid. Case discussed with surgical instrument maker who agreed Pt stable for discharge at this time, to follow up with Dr. Mcbride outpatient. Scribe Attestation: Documented by Jorden Moura, acting as a scribe for Juliane Duffy PA-C. Provider Scribe Attestation: All medical record entries made by the Scribe were at my direction and personally dictated by me. I have reviewed the chart and agree that the record accurately reflects my personal performance of the history, physical exam, medical decision making, and the department course for this patient. I have also personally directed, reviewed, and agree with the discharge instructions and disposition. Disposition - Clinical Impression Clinical Impression: Back pain - Patient ED Disposition Is Patient to be Admitted: No - Disposition Disposition: Routine/Home Disposition Time: 22:56 Condition: STABLE Prescriptions: Ibuprofen [Motrin] 600 mg PO Q6 #20 tab oxyCODONE/Acetaminophen [Percocet 5/325 mg Tab] 1 ea PO Q6 PRN #10 tab PRN Reason: Pain, Severe (8-10) Instructions: Skin Abscess Forms: [employer] (Dominican) Time Seen by Provider: 03/26/18 20:32 Chief Complaint (Nursing): Wound Check
[2018-03-26 22:39] LABS: BASO % 0.4 % (0.0-2.0); EOS # 0.2 K/uL (0.0-0.7); EOS % 1.5 % (0.0-4.0); HEMOGLOBIN 14.4 g/dL (12.0-16.0); LYMPH # 3.1 K/uL (1.0-4.3); LYMPH % 28.7 % (20.0-40.0); MEAN CELL VOLUME 86.8 fl (81.0-99.0); MEAN CORPUSCULAR HEMOGLOBIN 29.3 pg (27.0-31.0); MEAN CORPUSCULAR HGB CONC 33.7 g/dL (33.0-37.0); MEAN PLATELET VOLUME 9.7 fl (7.2-11.7); MONO # 0.7 K/uL (0.0-0.8); MONO % 6.1 % (0.0-10.0); NEUT # 6.8 K/uL (1.8-7.0); NEUT % 63.3 % (50.0-75.0); NRBC % 0.1 % (0.0-0.0); RBC 4.94 Mil/uL (3.80-5.20); WHITE BLOOD COUNT 10.8 K/uL (4.8-10.8)
[2018-03-26 23:03] VITALS: BP 122/78; PULSE 78; RESP 18; TEMP 98; O2SAT 100
[2018-03-26 23:10] LABS: ALB/GLOB RATIO 1.3 (1.0-2.1); ALBUMIN 4.3 g/dL (3.5-5.0); ALT/SGPT 28 U/L (9-52); AST/SGOT 23 U/L (14-36); BLOOD UREA NITROGEN 14 mg/dl (7-17); CALCIUM 9.4 mg/dL (8.4-10.2); GFR NON-AFRICAN AMERICAN > 60
--- NOTE | 2018-03-27 12:56 | US ---
Date of service: 03/26/18 Indication: Rule out fluid collection, lump back right side. Prior surgery. Technique: Real-time ultrasound scan of the right sided back/flank with image documentation Comparison: None available Findings: In the region of interest, there is a 7.8 x 2.4 cm complex collection with evidence of septations and internal echoes/debris. No imaging evidence of vascularity. Impression: Complex collection containing internal echoes/ debris and septations measuring approximately 7.8 x 2.4 cm in the region of interest (right side/line). No imaging evidence of vascularity demonstrated. Differential diagnosis includes but not limited to hematoma or abscess. Correlate clinically. Preliminary impression was provided by virtual radiologic.
== END 2018-03-26 23:02 | disposition home or self-care (01) ==
LOC: H.ER 19:48
DX: Z48.00 Encounter for change or removal of nonsurgical wound dressing (principal); M54.9 Dorsalgia, unspecified; E03.9 Hypothyroidism, unspecified; E11.9 Type 2 diabetes mellitus without complications; E78.00 Pure hypercholesterolemia, unspecified; I10 Essential (primary) hypertension; Z85.42 Personal history of malignant neoplasm of other parts of uterus